=== PATIENT | male | born 1980 | race Caucasian/White ===

== ENCOUNTER 2016-10-28 09:15 | Emergency (ER) | payer OTHER ==
[~2016-10-28] VITALS: Ht 185.4 cm; Wt 109.8 kg
[~2016-10-28 09:15] MED LIST: AMOXICILLIN500 M2 PO; ANTIVERT25 MG PO; CLINDAMYCIN HC300 MG PO; IBU800 M1 PO; VICODIN ES 7501 TAB PO
[2016-10-28] MEDS ORDERED: DOXYCYCLINE100 M3 PO (09:40)
[2016-10-28] MEDS ORDERED: PREDNISONE50 MG PO (09:40)
== END 2016-10-28 09:51 | disposition home or self-care (01) ==
LOC: ED 09:15
DX: L25.9 Unspecified contact dermatitis, unspecified cause (principal); L03.116 Cellulitis of left lower limb

== ENCOUNTER 2016-12-29 21:24 | Emergency (ER) | payer OTHER ==
[~2016-12-29] VITALS: Ht 185.4 cm; Wt 108.9 kg
[~2016-12-29 21:24] MED LIST changes: +DOXYCYCLINE100 M3 PO; +PREDNISONE50 MG PO
[2016-12-29] MEDS ORDERED: NAPROSYN500 MG PO (22:13)
[2016-12-29] MEDS ORDERED: AMOXICILLIN500 M2 PO (22:13)
== END 2016-12-29 22:37 | disposition home or self-care (01) ==
LOC: ED 21:24
DX: K08.89 Other specified disorders of teeth and supporting structures (principal); Z79.899 Other long term (current) drug therapy

== ENCOUNTER 2017-07-26 19:59 | Inpatient (IN) | payer OTHER ==
[~2017-07-26] VITALS: Ht 185.4 cm; Wt 119.4 kg
--- NOTE | ~2017-07-26 | CON ---
[place], [place] RE[facility]ATION [id number] UNIT #: [id number] ROOM: 519 DOCTOR: DEBI ANDREWS MD BIRTHDATE: [birth year] DOS: 07/27/2017 REASON FOR CONSULTATION: Chest pain. CLINICAL HISTORY: The patient is a 37-year-old gentleman came to the hospital for "chest pain, headache and hypertension." He has been having a headache for the past 10 days. He is also complaining of some numbness in the legs as well as arms and also feels like hot. He was seen at the [facility] and then was admitted to the hospital. His blood pressure was found to be elevated in the [facility]. He described being some chest tightness at rest, which goes towards the left shoulder blade, but no associated nausea, diaphoresis or dizziness. No chest pains. No palpitation. No PND. No orthopnea. No fever and chills. No cough. No hemoptysis. Cardiology consulted for his chest pain. He currently denies any chest pain. No shortness of breath. No headache. No nausea or vomiting. REVIEW OF SYSTEMS: Review of the 10 system negative except as mentioned above. PAST MEDICAL HISTORY: 1. Non-morbid obesity. 2. Vertigo. HOME MEDICATIONS: Reviewed. ALLERGIES: No known drug allergies. FAMILY HISTORY: History of diabetes mellitus. SOCIAL HISTORY: The patient does not drink, does not smoke, does not use illicit drugs. PHYSICAL EXAMINATION: VITAL SIGNS: Blood pressure 126/90, pulse 62 and respiration 20. GENERAL: Alert and comfortable, in no acute distress. NECK: Supple, no distended neck veins, no carotid bruits. CHEST: Symmetrical, nontender. LUNGS: Clear to auscultation bilaterally. HEART: Regular rhythm, no S3, no palpable thrills. ABDOMEN: Obese, nontender. Bowel sounds normal. EXTREMITIES: Showed no edema. Distal pulses palpable. SKIN: Warm and dry. No cyanosis, no clubbing. RECTAL: Deferred. GENITOURINARY: Deferred. PSYCHIATRIC: Patient is alert with good mood and affect. REVIEW OF THE DIAGNOSTIC TESTS, EKG AND IMAGING: Labs reviewed. EKG unremarkable, normal sinus rhythm, except also there is some ST elevation in lead V2 only. CBC, chemistry unremarkable. Troponins are negative. IMPRESSION: [facility] [place], [place] REPORT OF CONSULTATION NAME: TED CESPEDES UNIT #: [id number] ROOM: [facility] DOCTOR: DARRYL VALERIO,DEBI BIRTHDATE: [birth year] 1. Chest pain, atypical. This is bilateral chest pain at rest with no radiation, nonexertional chest pain, myocardial infarction ruled out. 2. Mild sinus bradycardia, asymptomatic. 3. Labile hypertension. 4. Non-morbid obesity. 5. Headache. RECOMMENDATIONS: 1. Chest pain appears to be atypical and no ischemic changes ____ risk factors. 2. Risk factor modification for diet, exercise and weight loss discussed. 3. He can be discharged home from the cardiac standpoint and will follow up in our office outpatient and consider outpatient treadmill test and 2D echo based on these symptoms. 4. There is no family at bedside at the time of my examination. 5. The patient is advised to watch his blood pressure and also watch his sodium intake and cut back on his salt intake. DEBI ANDREWS MD CM:CONSTR:REPORT OF CONSULTATION 1647 07/28/17 0039 interface
--- NOTE | ~2017-07-26 | WRIGHTHP ---
[place], [place] PATIENT HISTORY AND PHYSICAL EXAM NAME: TED CESPEDES [facility] #: [id number] UNIT #: [id number] ROOM: 519 DOCTOR: ELMER MOORE MD BIRTHDATE: [birth year] DOS: 07/27/2017 DISCHARGE DIAGNOSES: 1. Chest tightness, appears noncardiac. 2. Obesity, body mass index of 34.7. 3. Hypertension. HISTORY OF PRESENT ILLNESS: The patient presented to the Emergency Department with complaints of chest tightness and the troponin I level at 0.3. Troponin I level was 0.030, normal, but still slightly above baseline. The patient was also found to be hypertensive and was admitted to rule out acute [place]. After admission, the patient's blood pressures were treated with propranolol and then normalized and the cardiac enzymes stayed normal and were trending down, so she is being discharged to home. The patient was also seen by casework specialist and cleared for discharge and not recommended any further workup at this time. No more chest tightness. No complaints of shortness of breath. No nausea or diaphoresis. No past medical history of any coronary artery disease. Benign essential hypertension, now blood pressures are controlled with propranolol. Obesity. The patient to work with dietary, recommended a low salt, low calorie diet. LABORATORY DATA: Cardiac enzymes are normal and trending down. Normal serum electrolytes. Blood sugars are 107. PT, PTT normal. Normal CBC. DISCHARGE MANAGEMENT: Propranolol, long acting, 120 mg daily. Follow up with PCP, Dr. Rivas, this week. ELMER MOORE MD CM:HISPHYS:PATIENT HISTORY AND PHYSICAL EXAMINATION 1849 14 ELMER MOORE MD 07/27/172114 interface
--- NOTE | ~2017-07-26 | WRIGHTHP ---
[place], [place] PATIENT HISTORY AND PHYSICAL EXAM NAME: TED CESPEDES UNIT #: [id number] ROOM: [facility] DOCTOR: ELMER MOORE MD BIRTHDATE: [birth year] DOS: 07/26/2017 NO DICTATION. ELMER MOORE MD CM:HISPHYS:PATIENT HISTORY AND PHYSICAL EXAMINATION 1843 09 ELMER MOORE MD 07/27/179 interface
[~2017-07-26 19:59] MED LIST changes: +NAPROSYN500 MG PO
[2017-07-26 20:06] VITALS: BP 184/113
[2017-07-26 20:09] VITALS: BP 168/95
[2017-07-26 20:17] VITALS: BP 142/84
[2017-07-26 20:41] LABS: BASO # 0.1 10*3/uL (0.0-0.1); EOS # 0.2 10*3/uL (0.0-0.4); EOS % 2.3 % (1.0-4.0); HEMATOCRIT 40.1 % (42.0-52.0); HEMOGLOBIN 14.2 g/dl (14.0-18.0); LYMPH # 2.2 10*3/uL (1.3-4.4); LYMPH % 23.1 % (27.0-41.0); MEAN CELL VOLUME 85.1 fl (80.0-94.0); MEAN CORPUSCULAR HGB 30.1 pg (27.0-31.0); MEAN CORPUSCULAR HGB CONC 35.4 g/dl (33.0-37.0); MEAN PLATELET VOLUME 11.2 fl (9.6-12.3); NEUT # 6.1 10*3/uL (2.3-7.9); NEUT % 63.4 % (47.0-73.0); PLATELET COUNT AUTOMATED 232 10*3/uL (130-400); RED BLOOD COUNT 4.71 10*6/uL (4.50-5.90); WHITE BLOOD COUNT 9.6 10*3/uL (4.8-10.8)
[2017-07-26 20:51] LABS: ACT PARTIAL THROMBO TIME 23.9 SECONDS (20.8-31.5)
[2017-07-26 21:00] LABS: ALBUMIN 3.5 gm/dl (3.1-4.5); ALKALINE PHOSPHATASE 61 U/L (45-117); BUN 11 mg/dl (7-24); CHLORIDE 106 mmol/L (98-107); CREATININE 0.85 mg/dL (0.70-1.30); LIPASE 101 U/L (73-393); POTASSIUM 3.8 mmol/L (3.5-5.1); SGOT/AST 20 IU/L (3-35); SGPT/ALT 38 U/L (12-78); SODIUM 141 mmol/L (136-145); TOTAL PROTEIN 6.9 gm/dL (6.4-8.2)
[2017-07-26 21:01] VITALS: BP 148/90
[2017-07-26 22:32] VITALS: BP 148/90
[2017-07-27] VITALS: BP 157/98
[2017-07-27 08:00] VITALS: BP 126/90
[2017-07-27 12:00] VITALS: BP 152/85
[2017-07-27 16:00] VITALS: BP 131/77
[2017-07-27] MEDS ORDERED: INDERAL XL120 MG PO (18:41)
== END 2017-07-27 18:50 | disposition home or self-care (01) | DRG 313 ==
LOC: ED 19:59 → 5E 22:08 → EDHOLD 22:08 → 5E 22:25
PROVIDERS: Nurse Practitioner Family
DX: R07.89 Other chest pain (principal); E66.9 Obesity, unspecified; I10 Essential (primary) hypertension; Z68.34 Body mass index [BMI] 34.0-34.9, adult

== ENCOUNTER → 2018-03-14 | Outpatient (CLI) | payer OTHER ==
[~2018-03-14] MED LIST changes: +DELTASONE20 M1 PO; +INDERAL XL120 MG PO; +TESSALON PERLE100 M1 PO
[2018-03-14 09:03] LABS: HEMATOCRIT 41.5 % (42.0-52.0); HEMOGLOBIN 14.3 g/dl (14.0-18.0); MEAN CELL VOLUME 87.9 fl (80.0-94.0); MEAN CORPUSCULAR HGB 30.3 pg (27.0-31.0); MEAN CORPUSCULAR HGB CONC 34.5 g/dl (33.0-37.0); MEAN PLATELET VOLUME 11.5 fl (9.6-12.3); RED BLOOD COUNT 4.72 10*6/uL (4.50-5.90); RED CELL DISTRI WIDTH 12.3 % (0-14.5); WHITE BLOOD COUNT 7.4 10*3/uL (4.8-10.8)
[2018-03-14 09:34] LABS: ALBUMIN 3.3 gm/dl (3.1-4.5); ALKALINE PHOSPHATASE 44 U/L (45-117); BUN 11 mg/dl (7-24); CHLORIDE 107 mmol/L (98-107); CHOLESTEROL 123 mg/dL (<200); CREATININE 0.94 mg/dL (0.70-1.30); HDL CHOLESTEROL 23 mg/dl (40-60); LDL CHOLESTEROL 76 mg/dL (9-159); SGOT/AST 20 IU/L (3-35); SGPT/ALT 33 U/L (12-78); SODIUM 143 mmol/L (136-145); TRIGLYCERIDES 118 mg/dl (<150); VLDL CHOLESTEROL 24 mg/dL (6-40)
[2018-03-14 10:05] LABS: VITAMIN D, 25-HYDROXY 17.8 ng/mL (30-100)
[2018-03-15 06:08] LABS: RHEUMATOID ARTHRITIS FACTOR <10.0 IU/mL (0.0-13.9)
[2018-03-16 04:08] LABS: TESTOSTERONE FREE, (DIRECT) 5.3 pg/mL (8.7-25.1)
== END | disposition home or self-care (01) ==
LOC: LAB 08:40
PROVIDERS: Family Medicine
DX: F41.1 Generalized anxiety disorder (principal); R53.83 Other fatigue; M25.50 Pain in unspecified joint

== ENCOUNTER → 2019-12-08 | Outpatient (CLI) | payer OTHER ==
[2019-12-08 10:59] LABS: HEMATOCRIT 41.3 % (42.0-52.0); MEAN CELL VOLUME 87.5 fl (80.0-94.0); MEAN CORPUSCULAR HGB 29.4 pg (27.0-31.0); MEAN CORPUSCULAR HGB CONC 33.7 g/dl (33.0-37.0); RED BLOOD COUNT 4.72 10*6/uL (4.50-5.90); RED CELL DISTRI WIDTH 12.5 % (0-14.5); WHITE BLOOD COUNT 7.9 10*3/uL (4.8-10.8)
[2019-12-08 11:15] LABS: ALBUMIN 3.4 gm/dl (3.1-4.5); ALKALINE PHOSPHATASE 43 U/L (45-117); BUN 14 mg/dl (7-24); CHLORIDE 108 mmol/L (98-107); CHOLESTEROL 136 mg/dL (<200); CREATININE 0.88 mg/dL (0.70-1.30); HDL CHOLESTEROL 24 mg/dl (40-60); LDL CHOLESTEROL 90 mg/dL (9-159); POTASSIUM 4.2 mmol/L (3.5-5.1); SGOT/AST 11 IU/L (3-35); SGPT/ALT 32 U/L (12-78); SODIUM 140 mmol/L (136-145); TRIGLYCERIDES 112 mg/dl (<150); VLDL CHOLESTEROL 22 mg/dL (6-40)
[2019-12-08 11:21] LABS: THYROID STIM HORMONE (HS) 0.893 uIU/ml (0.358-4.75)
[2019-12-11 02:10] LABS: TESTOSTERONE FREE, (DIRECT) 4.6 pg/mL (8.7-25.1)
== END | disposition home or self-care (01) ==
LOC: LAB 10:44
PROVIDERS: Family Medicine
DX: I10 Essential (primary) hypertension (principal); E55.9 Vitamin D deficiency, unspecified; E78.00 Pure hypercholesterolemia, unspecified; N52.9 Male erectile dysfunction, unspecified; F41.1 Generalized anxiety disorder

== ENCOUNTER → 2022-03-27 | Outpatient (CLI) | payer OTHER ==
[2022-03-27 15:50] LABS: HEMATOCRIT 40.6 % (42.0-52.0); MEAN CELL VOLUME 86.6 fl (80.0-94.0); MEAN CORPUSCULAR HGB 30.1 pg (27.0-31.0); MEAN CORPUSCULAR HGB CONC 34.7 g/dl (33.0-37.0); MEAN PLATELET VOLUME 11.2 fl (9.6-12.3); RED BLOOD COUNT 4.69 10*6/uL (4.50-5.90); RED CELL DISTRI WIDTH 12.4 % (0-14.5); WHITE BLOOD COUNT 9.5 10*3/uL (4.8-10.8)
[2022-03-27 16:10] LABS: ALKALINE PHOSPHATASE 53 U/L (46-116); BUN 12 mg/dl (9-23); CHLORIDE 103 mmol/L (98-107); CHOLESTEROL 135 mg/dL (<200); CREATININE 0.91 mg/dL (0.70-1.30); LDL CHOLESTEROL 84 mg/dL (9-159); POTASSIUM 3.9 mmol/L (3.4-5.1); SGPT/ALT 44 U/L (10-49); SODIUM 138 mmol/L (136-145); TOTAL PROTEIN 6.7 gm/dL (6.0-8.0); TRIGLYCERIDES 157 mg/dl (<150)
== END | disposition home or self-care (01) ==
LOC: LAB 15:09
PROVIDERS: ATTEND Family Medicine
DX: Z00.00 Encounter for general adult medical examination without abnormal findings (principal); I10 Essential (primary) hypertension; R05.9 Cough, unspecified; R51.9 Headache, unspecified

== ENCOUNTER → 2022-11-24 | Outpatient (CLI) | payer OTHER | END | disposition home or self-care (01) | LOC: RAD 08:08 | PROVIDERS: ATTEND Family Medicine | DX: R05.3 Chronic cough (principal) ==

== ENCOUNTER → 2023-06-29 | Outpatient (CLI) | payer OTHER ==
[2023-06-29 08:29] LABS: BASO # 0.1 10*3/uL (0.0-0.1); BASO % 1.2 % (0.0-1.0); EOS # 0.2 10*3/uL (0.0-0.4); EOS % 2.2 % (1.0-4.0); HEMATOCRIT 45.2 % (42.0-52.0); LYMPH % 23.2 % (27.0-41.0); MEAN CELL VOLUME 86.1 fl (80.0-94.0); MEAN CORPUSCULAR HGB 29.3 pg (27.0-31.0); MEAN CORPUSCULAR HGB CONC 34.1 g/dl (33.0-37.0); MEAN PLATELET VOLUME 10.8 fl (9.6-12.3); MONO # 0.7 10*3/uL (0.1-1.0); MONO % 7.7 % (3.0-9.0); NEUT # 5.5 10*3/uL (2.3-7.9); NEUT % 65.2 % (47.0-73.0); PLATELET COUNT AUTOMATED 265 10*3/uL (130-400); RED BLOOD COUNT 5.25 10*6/uL (4.50-5.90); RED CELL DISTRI WIDTH 12.4 % (0-14.5); WHITE BLOOD COUNT 8.5 10*3/uL (4.8-10.8)
[2023-06-29 08:56] LABS: ALKALINE PHOSPHATASE 52 U/L (46-116); BUN 15 mg/dl (9-23); CHLORIDE 109 mmol/L (98-107); CHOLESTEROL 144 mg/dL (<200); LDL CHOLESTEROL 102 mg/dL (9-159); SGPT/ALT 21 U/L (5-49); TOTAL PROTEIN 7.1 gm/dL (6.0-8.0); TRIGLYCERIDES 78 mg/dl (<150)
== END | disposition home or self-care (01) ==
LOC: LAB 08:03
PROVIDERS: Nurse Practitioner Family; ATTEND Family Medicine
DX: Z13.29 Encounter for screening for other suspected endocrine disorder (principal); Z13.1 Encounter for screening for diabetes mellitus; Z13.21 Encounter for screening for nutritional disorder; I10 Essential (primary) hypertension; K21.9 Gastro-esophageal reflux disease without esophagitis

== ENCOUNTER 2023-10-08 10:12 | Emergency (ER) | payer OTHER ==
[~2023-10-08] VITALS: Ht 182.8 cm; Wt 121.6 kg
[2023-10-08] MEDS ORDERED: OMEPRAZOLE40 MG PO (10:18)
[2023-10-08] MEDS ORDERED: LISINOPRIL40 MG PO (10:18)
[2023-10-08] MEDS ORDERED: TOPAMAX100 M1 PO (10:19)
[2023-10-08] MEDS ORDERED: FLUOXETINE HCL10 M1 PO (10:20)
[2023-10-08] MEDS ORDERED: MELOXICAM15 MG PO (13:03)
[2023-10-08] MEDS ORDERED: Ketorolac Tromethamine 30 MG/ML VIAL IM ONE (13:10)
== END 2023-10-08 13:08 | disposition home or self-care (01) ==
LOC: ED 10:12
DX: M25.512 Pain in left shoulder (principal); R51.9 Headache, unspecified; M54.2 Cervicalgia; Z79.899 Other long term (current) drug therapy; V89.2XXA Person injured in unspecified motor-vehicle accident, traffic, initial encounter; Y93.I9 Activity, other involving external motion; Y92.488 Other paved roadways as the place of occurrence of the external cause; Y99.8 Other external cause status

== ENCOUNTER 2024-06-13 11:01 | Emergency (ER) | payer OTHER ==
[~2024-06-13] VITALS: Ht 182.8 cm; Wt 127.9 kg
[~2024-06-13 11:01] MED LIST changes: +FLUOXETINE HCL10 M1 PO; +LISINOPRIL40 MG PO; +MELOXICAM15 MG PO; +OMEPRAZOLE40 MG PO; +TOPAMAX100 M1 PO
[2024-06-13] MEDS ORDERED: NORVASC5 MG PO (11:22)
[2024-06-13] MEDS ORDERED: ACETAMINOPHEN 325 MG TAB PO ONE (11:35)
== END 2024-06-13 13:13 | disposition home or self-care (01) ==
LOC: ED 11:01
DX: J10.1 Influenza due to other identified influenza virus with other respiratory manifestations (principal); I10 Essential (primary) hypertension; G43.909 Migraine, unspecified, not intractable, without status migrainosus; Z20.822 Contact with and (suspected) exposure to COVID-19; Z79.899 Other long term (current) drug therapy

== ENCOUNTER → 2024-07-04 | Outpatient (CLI) | payer OTHER ==
[~2024-07-04] MED LIST changes: +NORVASC5 MG PO
[2024-07-04 08:05] LABS: BASO # 0.1 10*3/uL (0.0-0.1); BASO % 1.1 % (0.0-1.0); EOS # 0.3 10*3/uL (0.0-0.4); EOS % 4.2 % (1.0-4.0); HEMATOCRIT 41.5 % (42.0-52.0); MEAN CELL VOLUME 85.4 fl (80.0-94.0); MEAN CORPUSCULAR HGB 28.8 pg (27.0-31.0); MEAN CORPUSCULAR HGB CONC 33.7 g/dl (33.0-37.0); MEAN PLATELET VOLUME 10.8 fl (9.6-12.3); MONO # 0.8 10*3/uL (0.1-1.0); NEUT # 4.9 10*3/uL (2.3-7.9); NEUT % 64.5 % (47.0-73.0); PLATELET COUNT AUTOMATED 269 10*3/uL (130-400); RED BLOOD COUNT 4.86 10*6/uL (4.50-5.90); RED CELL DISTRI WIDTH 12.7 % (0-14.5); WHITE BLOOD COUNT 7.6 10*3/uL (4.8-10.8)
[2024-07-04 08:47] LABS: ALKALINE PHOSPHATASE 46 U/L (46-116); BUN 13 mg/dl (9-23); CHLORIDE 105 mmol/L (98-107); CHOLESTEROL 128 mg/dL (<200); LDL CHOLESTEROL 94 mg/dL (9-159); POTASSIUM 3.9 mmol/L (3.4-5.1); SGPT/ALT 23 U/L (5-49); TOTAL PROTEIN 6.7 gm/dL (6.0-8.0); TRIGLYCERIDES 63 mg/dl (<150)
== END | disposition home or self-care (01) ==
LOC: LAB 07:25
PROVIDERS: ATTEND Nurse Practitioner Family
DX: K21.9 Gastro-esophageal reflux disease without esophagitis (principal); I10 Essential (primary) hypertension; F43.10 Post-traumatic stress disorder, unspecified; E55.9 Vitamin D deficiency, unspecified

== ENCOUNTER → 2024-12-03 | Outpatient (CLI) | payer OTHER ==
[2024-12-03 17:25] LABS: BASO # 0.1 10*3/uL (0.0-0.1); BASO % 0.9 % (0.0-1.0); EOS # 0.2 10*3/uL (0.0-0.4); EOS % 1.8 % (1.0-4.0); MEAN CELL VOLUME 86.1 fl (80.0-94.0); MEAN CORPUSCULAR HGB 29.4 pg (27.0-31.0); MEAN PLATELET VOLUME 11.7 fl (9.6-12.3); MONO # 0.9 10*3/uL (0.1-1.0); MONO % 9.4 % (3.0-9.0); NEUT # 6.4 10*3/uL (2.3-7.9); NEUT % 67.3 % (47.0-73.0); NUCLEATED RED BLOOD CELL 0.0 % (0.0-0.0); NUCLEATED RED BLOOD CELL 0.0 10*3/uL (0.0-0.0); PLATELET COUNT AUTOMATED 254 10*3/uL (130-400); RED CELL DISTRI WIDTH 12.7 % (0-14.5)
[2024-12-03 17:49] LABS: BUN 11 mg/dl (9-23); SGPT/ALT 23 U/L (5-49); VITAMIN D, 25-HYDROXY 43.4 ng/mL (30-100)
== END | disposition home or self-care (01) ==
LOC: LAB 15:34
PROVIDERS: ATTEND Nurse Practitioner Family
DX: R22.1 Localized swelling, mass and lump, neck (principal)

== ENCOUNTER → 2025-02-16 | Outpatient (CLI) | payer OTHER ==
[~2025-02-16] MED LIST changes: +Regadenoson 0.4 MG/5 ML SYR IV ONE
== END | disposition home or self-care (01) ==
LOC: CARD 02-02 07:30
PROVIDERS: ATTEND Internal Medicine Cardiovascular Disease
DX: I51.7 Cardiomegaly (principal); I44.7 Left bundle-branch block, unspecified; R42 Dizziness and giddiness; R94.31 Abnormal electrocardiogram [ECG] [EKG]; Z82.49 Family history of ischemic heart disease and other diseases of the circulatory system

== ENCOUNTER → 2025-03-13 | Outpatient (CLI) | payer OTHER ==
[~2025-03-13] MED LIST changes: -Regadenoson 0.4 MG/5 ML SYR IV ONE
[2025-03-13 09:22] LABS: LDL CHOLESTEROL 93 mg/dL (9-159)
== END | disposition home or self-care (01) ==
LOC: LAB 08:38
PROVIDERS: ATTEND Nurse Practitioner Family
DX: E78.2 Mixed hyperlipidemia (principal); R94.39 Abnormal result of other cardiovascular function study